=== PATIENT | female | born 1990 | race Caucasian/White ===

== ENCOUNTER 2016-12-06 18:55 | Emergency (ER) | payer MEDICAID ==
[~2016-12-06] VITALS: Ht 165.1 cm; Wt 89.3 kg
[2016-12-06] MEDS ORDERED: LORazepam 1MG TABLET PO ONE (19:30)
[2016-12-06] MEDS ORDERED: LORazepam 2 MG/ML, 1ML ONE (19:34)
[2016-12-06 19:43] LABS: ASPARTATE AMINO TRANSFERASE 12 U/L (15-37); BLOOD UREA NITROGEN 9 mg/dL (7-18)
[2016-12-06] MEDS ORDERED: LORazepam 2 MG/ML, 1ML IVPush ONE (20:00)
[2016-12-06] MEDS ORDERED: OMNIPAQUE 350 MG/ML, 100ML BOTTLE ONE (20:34)
[2016-12-06] MEDS ORDERED: POTASSIUM CHLORIDE 20 MEQ TAB.ER.PRT PO ONE (21:30)
[2016-12-06] MEDS ORDERED: POTASSIUM CHLORIDE 20 MEQ TAB.ER.PRT ONE (21:45)
[2016-12-06 22:35] VITALS: BP 119/71
== END 2016-12-06 22:38 | disposition home or self-care (01) ==
LOC: ED 21:07
DX: R10.11 Right upper quadrant pain (principal); R11.0 Nausea; F12.10 Cannabis abuse, uncomplicated
CPT/HCPCS: 36415; 74020; 74177; 76700; 80053; 81003; 83690; 84703; 85025; 93005; 96374; 99285; J2060; Q9967

== ENCOUNTER 2016-12-09 02:43 | Emergency (ER) | payer MEDICAID ==
[~2016-12-09] VITALS: Ht 165.1 cm; Wt 82.0 kg
[2016-12-09] MEDS ORDERED: ZIPRASIDONE 20 MG INJ IM ONE ×2 (03:06→03:30)
[2016-12-09] MEDS ORDERED: SODIUM CHLORIDE FLUSH 10ML SYR IVF ONE (03:30)
[2016-12-09] MEDS ORDERED: SODIUM CHLORIDE 0.9% 1,000ML IVBOLUS ONE ×2 (03:30→04:00)
[2016-12-09 03:33] LABS: ASPARTATE AMINO TRANSFERASE 13 U/L (15-37); BLOOD UREA NITROGEN 12 mg/dL (7-18)
[2016-12-09 03:58] LABS: DAU SCREEN DISCLAIMER
[2016-12-09] MEDS ORDERED: OMNIPAQUE 350 MG/ML, 100ML BOTTLE ONE (04:16)
[2016-12-09 05:19] VITALS: BP 116/66
== END 2016-12-09 05:29 | disposition home or self-care (01) ==
LOC: ED 03:57
DX: R10.84 Generalized abdominal pain (principal); E87.6 Hypokalemia; R74.0 Nonspecific elevation of levels of transaminase and lactic acid dehydrogenase [LDH]
CPT/HCPCS: 36415; 74174; 80053; 80307; 83605; 83690; 84703; 85025; 96360; 96361; 96372; 99285; J3486; J7030; Q9967

== ENCOUNTER 2020-11-10 17:50 | Emergency (ER) | payer MEDICAID, OTHER ==
[~2020-11-10] VITALS: Ht 165.1 cm; Wt 99.4 kg
[2020-11-10 17:57] VITALS: BP 145/100
[2020-11-10 18:22] LABS: BASOPHILS % (AUTO) 1 % (0-1); EOSINOPHILS % (AUTO) 1 % (1-7); LYMPHOCYTES % (AUTO) 29 % (22-44); MEAN CORPUSCULAR HEMOGLOBIN 29.8 pg (27.0-34.8); MEAN CORPUSCULAR HGB CONC 34.6 g/dL (32.4-35.8); MEAN PLATELET VOLUME 7.1 fL (7.4-10.4); MONOCYTES % (AUTO) 6 % (2-9); NEUTROPHILS % (AUTO) 64 % (42-75); PLATELET COUNT 395 x10^3/uL (130-400); RED BLOOD COUNT 4.47 x10^6/uL (3.82-5.3); RED CELL DISTRIBUTION WIDTH 12.7 % (9.6-15.2)
[2020-11-10 18:29] LABS: MD NO
[2020-11-10] MEDS ORDERED: IBUPROFEN 800 MG TABLET ONE (20:26)
[2020-11-10] MEDS ORDERED: IBUPROFEN 800 MG TABLET PO ONE (20:30)
== END 2020-11-10 20:38 | disposition home or self-care (01) ==
LOC: ED 20:35
DX: L03.114 Cellulitis of left upper limb (principal); L03.113 Cellulitis of right upper limb; Z48.01 Encounter for change or removal of surgical wound dressing; K21.9 Gastro-esophageal reflux disease without esophagitis
CPT/HCPCS: 36415; 85025; 99283

== ENCOUNTER 2020-11-12 19:52 | Emergency (ER) | payer OTHER ==
[~2020-11-12] VITALS: Ht 165.1 cm; Wt 102.2 kg
--- NOTE | 2020-11-12 21:44 | NUR ---
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
--- NOTE | 2020-11-12 21:49 | NUR ---
assessment made. 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
[2020-11-12 21:57] LABS: BASOPHILS % (AUTO) 1 % (0-1); EOSINOPHILS % (AUTO) 1 % (1-7); LYMPHOCYTES % (AUTO) 32 % (22-44); MEAN CORPUSCULAR HGB CONC 34.2 g/dL (32.4-35.8); MEAN PLATELET VOLUME 7.1 fL (7.4-10.4); MONOCYTES % (AUTO) 5 % (2-9); NEUTROPHILS % (AUTO) 61 % (42-75); PLATELET COUNT 371 x10^3/uL (130-400); RED BLOOD COUNT 4.31 x10^6/uL (3.82-5.3); RED CELL DISTRIBUTION WIDTH 12.7 % (9.6-15.2)
[2020-11-12 21:58] LABS: MD NO
[2020-11-12 22:09] LABS: ALANINE AMINOTRANSFERASE 22 U/L (12-78); ALBUMIN 3.4 g/dL (3.4-5.0); ANION GAP 3 mmol/L (5-15); CALCIUM 8.6 mg/dL (8.5-10.1); CHLORIDE 111 mmol/L (98-107); CREATININE 0.63 mg/dL (0.55-1.02)
[2020-11-12 22:11] LABS: ALKALINE PHOSPHATASE 66 U/L (45-117); BILIRUBIN,TOTAL 0.5 mg/dL (0.2-1.0); TOTAL PROTEIN 7.4 g/dL (6.4-8.2)
--- NOTE | 2020-11-12 22:27 | NUR ---
patient medicated for itching.
--- NOTE | 2020-11-12 23:07 | NUR ---
urine sample obtained and sent to lab.
[2020-11-12 23:22] LABS: MICROSCOPIC INDICATED
[2020-11-13 00:38] VITALS: BP 132/89
--- NOTE | 2020-11-13 01:15 | NUR ---
TASK RN: DC EDUCATION PROVIDED, PT DEMONSTRATES UNDERSTANDING. PT AMBULATED STEADILY TO DC WITH RN
[2020-11-13 16:56] LABS: ANA SCREEN POSITIVE (Negative); ANA TITER MIXED; ANTI-NUCLEAR ANTIBODY PATTERN MIXED
== END 2020-11-13 01:17 | disposition home or self-care (01) ==
LOC: ED 20:22
DX: L29.8 Other pruritus (principal); T78.40XA Allergy, unspecified, initial encounter; K21.9 Gastro-esophageal reflux disease without esophagitis
CPT/HCPCS: 36415; 80053; 81001; 84703; 85025; 86038; 86039; 86430; 99283; Q0177

== ENCOUNTER 2020-12-04 08:51 | Emergency (ER) | payer SELFPAY ==
[~2020-12-04] VITALS: Ht 165.1 cm; Wt 90.0 kg
--- NOTE | 2020-12-04 09:14 | NUR ---
PT BIBA, REPORT TAKEN FROM EMS. PT PRESENTS WITH C/O SORE THROAT, N/V, BODY ACHES SINCE TUESDAY. PT STATES THEY WORK IN [employer] AND BELIEVES THAT THEY HAVE COVID. PT STATES THEY HAD INFECTION FROM TATTOOS APPROX 1 MONTH AGO, TREATED WITH ABX AND STEROIDS. PT ALSO HAS HX OF ANXIETY. PT A&O, RESPS EVEN AND SLIGHTLY LABORED. ERMD LAW AT BEDSIDE FOR EVAL.
[2020-12-04] MEDS ORDERED: METOCLOPRAMIDE 5 MG/ML, 2ML ONE (09:20)
[2020-12-04] MEDS ORDERED: ACETAMINOPHEN 500 MG TABLET ONE (09:20)
[2020-12-04] MEDS ORDERED: KETOROLAC 30 MG/1 ML ONE (09:20)
[2020-12-04] MEDS ORDERED: ACETAMINOPHEN 500 MG TABLET PO ONE (09:30)
[2020-12-04] MEDS ORDERED: METOCLOPRAMIDE 5 MG/ML, 2ML IVPush ONE (09:30)
[2020-12-04] MEDS ORDERED: KETOROLAC 30 MG/1 ML IVPush ONE (09:30)
[2020-12-04] MEDS ORDERED: SODIUM CHLORIDE 0.9% 1,000ML IVBOLUS ONE (09:30)
[2020-12-04 09:33] LABS: BASOPHILS % (AUTO) 0 % (0-1); EOSINOPHILS % (AUTO) 0 % (1-7); LYMPHOCYTES % (AUTO) 8 % (22-44); MEAN CORPUSCULAR HEMOGLOBIN 29.9 pg (27.0-34.8); MEAN CORPUSCULAR HGB CONC 34.7 g/dL (32.4-35.8); MEAN PLATELET VOLUME 7.4 fL (7.4-10.4); MONOCYTES % (AUTO) 8 % (2-9); NEUTROPHILS % (AUTO) 83 % (42-75); PLATELET COUNT 276 x10^3/uL (130-400); RED BLOOD COUNT 4.25 x10^6/uL (3.82-5.3); RED CELL DISTRIBUTION WIDTH 12.7 % (9.6-15.2)
[2020-12-04 09:48] LABS: ALANINE AMINOTRANSFERASE 21 U/L (12-78); ALBUMIN 3.2 g/dL (3.4-5.0); ANION GAP 14 mmol/L (5-15); CALCIUM 8.7 mg/dL (8.5-10.1); CHLORIDE 105 mmol/L (98-107); CREATININE 0.82 mg/dL (0.55-1.02)
[2020-12-04 09:50] LABS: ALKALINE PHOSPHATASE 61 U/L (45-117); TOTAL PROTEIN 7.8 g/dL (6.4-8.2)
--- NOTE | 2020-12-04 10:38 | NUR ---
PT RESTING IN BED, RESPS EVEN AND UNLABORED, VSS, NADN. COVID SWAB COLLECTED AND SENT TO LAB. COOL WASH CLOTH PLACED TO FOREHEAD FOR PT COMPLAINT OF FEELING WARM.
[2020-12-04 11:15] VITALS: BP 122/59
--- NOTE | 2020-12-04 11:37 | NUR ---
DISCHARGE INSTRUCTIONS REVIEWED, PT EDUCATED ON PRESCRIPTION, FOLLOW-UP, AND RETURN CRITERIA, VERBALIZED UNDERSTANDING. PT A&O, RESPS EVEN AND UNLABORED, VSS, NADN. AMBULATORY TO DISCHARGE WIOTH STEADY GAIT, NO COMPLAINTS AT TIME OF DISCHARGE.
== END 2020-12-04 11:41 | disposition home or self-care (01) ==
LOC: ED 10:00
DX: H66.001 Acute suppurative otitis media without spontaneous rupture of ear drum, right ear (principal); Z20.822 Contact with and (suspected) exposure to COVID-19; J02.8 Acute pharyngitis due to other specified organisms; B97.89 Other viral agents as the cause of diseases classified elsewhere; R59.0 Localized enlarged lymph nodes; R00.0 Tachycardia, unspecified
CPT/HCPCS: 36415; 71045; 80053; 84145; 85025; 93005; 96361; 96374; 96375; 99285; J1885; J2765; J7030; U0003; U0005